=== PATIENT | female | born 1990 | race African-American/Black ===

== ENCOUNTER 2017-12-18 21:45 | Emergency (ER) | payer OTHER ==
[~2017-12-18] VITALS: Ht 182.9 cm; Wt 100.9 kg
[2017-12-18 22:01] VITALS: BP 142/88; PULSE 72; TEMP 36.7; O2SAT 100; Ht 182.9 cm; Wt 100.9 kg
[2017-12-18] MEDS ORDERED: HYDROCORTISONE 1% CR 30 GM TUBE EXT STA (22:23)
[2017-12-18] MEDS ORDERED: PRED50TA PO (22:29)
--- NOTE | 2017-12-19 04:42 | EMERGENCY ROOM VISIT NOTE ---
History First contact with patient: 22:03 Chief Complaint: RASH Stated Complaint: HIVES AND ITCH ON STOMACH, ARM AND CHEST History of Present Illness The patient is a 27 year old female who presents to the Emergency Room with complaints of itchy rash to chest abdomen and arms for the past day that is steadily getting worse. Nothing makes it better. Scratching makes it worse. No new food soaps or detergents. Patient denies chest pain, dyspnea, fever, chills, throat tightness, facial swelling, lightheadedness or dizziness. No other complaints per patient. Review of Systems An 10 system review of systems was completed with positives and pertinent negatives listed in the HPI. Past Medical/Surgical History Medical Problems: (1) ASTHMA, UNSPECIFIED Social History Smoking Status: Former Smoker Marital Status: single Occupation Status: unemployed Current/Historical Medications Scheduled Prednisone (Prednisone), 50 MG PO DAILY Miscellaneous Medications None (Patient States No Home Meds) None (Patient States No Home Meds) Physical Exam Vital Signs Date Time Temp Pulse Resp B/P (MAP) Pulse Ox O2 Delivery O2 Flow Rate FiO2 12/18/17 22:01 36.7 72 18 142/88 100 Room Air Physical Exam VITALS: Vitals are noted on the nurse's note and reviewed by myself. Vital signs stable. GENERAL: Pleasant female, in no acute distress, nondiaphoretic, well-developed well-nourished. SKIN: Capillary reflex less than 2 seconds. Multiple diffuse erythematous raised blanchable dermatitis to chest arms and back. HEENT: Normocephalic. PERRLA. EOMI. Nares patent. Mucous membranes moist. Neck is supple without nuchal rigidity. No facial swelling. No tongue swelling. HEART: Regular rate and rhythm without murmurs gallops or rubs. LUNGS: Clear to auscultation bilaterally without wheezes, rales or rhonchi. No retractions or accessory muscle use. ABDOMEN: Positive bowel sounds x 4. Normal tympanic percussion. Soft, nontender, without masses or organomegaly. Rebolledo sign negative. No guarding or rebound tenderness. MUSCULOSKELETAL: No gross musculoskeletal defects. No pedal edema. No calf tenderness. NEURO: Patient was alert and oriented to person place and time. Normal sensation to light and sharp touch. No focal neurological deficits. Medical Decision & Procedures Medications Administered Medications (Trade) Dose Ordered Sig/Marko Route Start Time Stop Time Status Last Admin Dose Admin Diphenhydramine HCl (Benadryl Cap) 50 mg NOW ONCE PO 12/18/17 22:30 12/18/17 22:31 DC 12/18/17 22:47 50 MG Prednisone (PredniSONE TAB) 60 mg NOW STAT PO 12/18/17 22:23 12/18/17 22:24 DC 12/18/17 22:47 60 MG Hydrocortisone (Hydrocortisone 1% Crm) 1 appln NOW STAT EXT 12/18/17 22:23 12/18/17 22:24 DC 12/18/17 22:23 1 APPLN ED Course Prior records/ancillary studies reviewed. Triage Nursing notes reviewed. Additional history obtained from family. The patient's history was concerning for a rash. Differential diagnosis: Etiologies such as contact dermatitis, viral exanthem, urticaria, allergic reaction, Seals-Suresh syndrome, toxic epidermal necrolysis, erythema multiforme, cellulitis, scabies, HSV, varicella, zoster, eczema, staph scalded skin syndrome, fungal infection, as well as others were entertained. Physical examination: Patient is alert and well-appearing ER treatment provided: Prednisone, Benadryl On reassessment the patient felt better. Diagnostic interpretation by me: Deferred The etiology for the patient's rash appears to be consistent with dermatitis that could be contact or allergic in etiology. Patient states is quite itchy. She is advised to use hydrocortisone cream and Benadryl. Patient had no signs of cellulitis or bacterial infection. She was afebrile nontoxic. She is advised not to scratch at it. She is advised to follow-up family can a few days here in the ER sooner for fevers, spreading of rash, worsening signs or symptoms or as needed. By the evaluation outlined above emergent etiologies such as Seals-Suresh syndrome, toxic epidermal necrolysis, erythema multiforme, cellulitis, scabies, HSV, varicella, zoster, staph scalded skin syndrome, as well as others were deemed relatively unlikely. The pt informed about the findings as listed above. All questions were answered and pleased with the treatment. Return instructions were outlined and the patient was discharged in stable condition. Outpatient prescription management: Prednisone Referral: The patient was referred back to their primary care physician for follow-up in 2 -3 days for a recheck of the current condition. The chart was completed utilizing Dragon Speech voice recognition software. Grammatical errors, random word insertions, pronoun errors, and incomplete sentences are an occassional consequence of this system due to software limitations, ambient noise, and hardware issues. Any formal questions or concerns about the content, text, or information contained within the body of this dictation should be directly addressed to the physician buyer assistant for clarification. Medical Decision As above Medication Reconcilliation Current Medication List: was personally reviewed by me Blood Pressure Screening Patient's blood pressure: Elevated blood pressure Blood pressure disposition: Elevated BP felt to be situational Impression Primary Impression: Dermatitis Departure Information Dispostion Home / Self-Care Condition GOOD Prescriptions Prednisone (Prednisone) 50 Mg Tab 50 MG PO DAILY for 4 Days, #4 TAB Prov: Meseret Prince ., KARRI 12/18/17 Forms WORK / SCHOOL INSTRUCTIONS, HOME CARE DOCUMENTATION FORM, IMPORTANT VISIT INFORMATION Patient Instructions Rash - [facility], [facility] Additional Instructions DO NOT drive, drink alcohol, operate machinery, or perform dangerous activities today. You were given medications in the ER that can affect your ability to safely function or operate a vehicle. Hydrocortisone cream: Apply twice a day to the affected area of the rash, not on the face. Prednisone 50mg: Once daily until the prescription is finished. It is best to take this earlier in the day as some patients note occasional difficulty falling asleep when taken in the late evening. Diphenhydramine(Benadryl) 25mg: use 25 to 50 mg every six hours for swelling, itching, or hives. This medication is sedating and will cause drowsiness. Avoid alcohol, operating machinery or dangerous equipment, working on ladders or roofs, DRIVING, or situations where being under the influence may be dangerous. Benadryl is available [id number]. Continue current medications. Return to the emergency department for worsening of your rash, swelling of your face, lips, tongue, or throat, difficulty breathing, vomiting, or as needed. Follow-up with your primary care physician in 2 to 3 days for a recheck of your current condition.
== END 2017-12-18 23:03 | disposition home or self-care (01) ==
LOC: C.EDB 21:47 → C.EDC 23:03
DX: L30.9 Dermatitis, unspecified (principal); L50.9 Urticaria, unspecified; Z79.899 Other long term (current) drug therapy